=== PATIENT | male | born 1960 | race Caucasian/White ===

== ENCOUNTER 2016-04-03 06:57 | Emergency (ER) | payer OTHER ==
[~2016-04-03] VITALS: Ht 175.3 cm; Wt 63.6 kg
[~2016-04-03 06:57] MED LIST: FLUO20TA28 PO; NPR500T PO; PENI500T PO
[2016-04-03 07:11] VITALS: BP 124/83; PULSE 66; RESP 12; O2SAT 98
--- NOTE | 2016-04-03 07:28 | ED.REPORT ---
HPI-Extremity Problem Upper Date of Service Apr 03, 2016 ED Provider: Luly Gamez MD Pt is a 55 y/o healthy male presenting to the ED c/o left shoulder pain secondary to ground level fall 2 days ago where he hit the rail of his porch. His pain is greatly exacerbated by range of motion. He denies numbness or weakness of the left arm. He denies any other site of injury, LOC. Nursing Notes Stated Complaint: LEFT SHOULDER PAIN/INJURY Chief Complaint: Extremity Trauma Nursing Notes Reviewed: Yes Allergies: Coded Allergies: No Known Allergies (Verified Allergy, Unknown, 07/18/14) Scheduled Fluoxetine (Fluoxetine) 20 Mg Tablet 40 MG PO DAILY Penicillin V Potassium (Penicillin V Potassium) 500 Mg Tablet 500 MG PO QID Scheduled PRN Naproxen (Naproxen) 500 Mg Tab 500 MG PO BID PRN PRN For Pain General Time Seen by MD: 07:27 Chief Complaint Shoulder injury left Hx Obtained From: Patient Arrived By: Walk-in Onset Occurred: 2 days ago Symptom Duration: Since onset Caused by: Fall on ground Location: : Shoulder left Quality: Painful Severity: Current: Moderate Severity: Maximum: Moderate Exacerbated by: Range of motion Relieved by: Rest Recent Healthcare: Recent doctor visit, Recent testing Past Medical History Past Medical History Depression History of lichen planus Past Surgical History Foot surgery due to nail through foot Bladder mesh Smoking History Current Every Day Smoker Social History Alcohol Use: "Social" Drug Use: THC Other Social History: Ambulatory Status Independent Review of Systems Constitutional: Denies: Chills, Fever Musculoskeletal: Reports: Extremity pain (l shoulder) Neurologic: Denies: Numbness, Weakness Complete sys rev & neg: except as marked. Physical Exam Initial Vital Signs Vital Signs (First) Date Time Temp Pulse Resp B/P Pulse Ox O2 Delivery O2 Flow Rate FiO2 04/03/16 07:11 36.2 66 12 124/83 98 Room Air Initial VS: Reviewed Head / Eyes: Atraumatic, Normocephalic, PERRL ENT: Mucous membranes moist, Conjunctiva normal, No scleral icterus Neck: Supple, Full range of motion Respiratory: No respiratory distress Cardiovascular: Intact distal pulses Abdomen / GI: Soft, No distention Lower Extremities: Vascular intact, Neuro intact Skin: Warm, Dry, No cyanosis Neurologic: Alert, Oriented, Nonfocal Psychiatric: Mood/affect normal, Behavior normal, Normal thought content Upper Extremity / MS: No erythema, No deformity, Neurologic intact, Vascular intact Left shoulder: AC joint moderately tender Clavicle non-tender Interpretation & Diagnostics X-Ray Interpretation Xray Interpretation: IMPRESSION: No trauma found. Dictated by: Jason Muro M.D. on 04/03/2016 at 8:45 Approved by: Jason Muro M.D. on 04/03/2016 at 8:45 Study Performed: Bilateral AC joint 2 view X-Ray Ordered: Shoulder left Interpretation / Wet Read by: Interpret - Radiologist Re-Eval/Medical Decision Re-Evaluation/Progress : Time of Eval: 09:01 Re-Evaluation/Progress Note: Pt rechecked. Informed pt of plan for treatment. Pt understands and agrees with plan for treatment. F/U and RTER warnings given. All questions addressed. Counseled Regarding: Diagnosis, Need for follow-up, When/why to return to ED Discharge & Departure Impression: Primary Impression: Fall Encounter type: initial encounter Qualified Code: W19.XXXA - Unspecified fall, initial encounter Additional Impression: Acute shoulder pain Laterality: left Qualified Code: M25.512 - Pain in left shoulder Ruled Out: AC separation, Fracture Disposition: Home Discharge Condition All VS Reviewed: Yes Condition: Stable Patient Instructions: Contusion (ED) Additional Instructions: There was no sign of fracture or AC separation on your shoulder x-ray today. Take Ibuprofen every 6 hours as needed for pain. Return to the emergency department for severe pain, if you develop numbness/ tingling or weakness of the left arm, or for any other concerning signs or symptoms. Follow up with your primary doctor next week. Referrals: Arthur Boo MD (PCP) Nick Attestation Portions of this note were transcribed by Laurent Langley. I, Dr. Gamez personally performed the history, physical exam and medical decision-making; I reviewed and confirmed the accuracy of the information in the transcribed note. Signed by Nick Morin, 04/03/16 0808 copies to: Arthur Boo MD, Shawna L MD Apr 03, 2016 07:28 LAURENT LANGLEY Apr 03, 2016 07:38
--- NOTE | 2016-04-03 08:47 | DRSVH ---
PROCEDURE: X-RAY BILATERAL ACROMIOCLAVICULAR JOINTS ([id number]) INDICATIONS: fall TECHNIQUE: 2 views each of both acromioclavicular joints were acquired. COMPARISON: None. FINDINGS: Bones: No fractures or dislocations. Weightbearing views demonstrate normal acromioclavicular joint alignment as well. No suspicious bony lesions. Superior ribs appear normal. Soft tissues: No suspicious soft tissue calcifications. IMPRESSION: No trauma found. Dictated by: Jason Muro M.D. on 04/03/2016 at 8:45 Approved by: Jason Muro M.D. on 04/03/2016 at 8:45
== END 2016-04-03 09:19 | disposition home or self-care (01) ==
LOC: SED 06:57
DX: M25.512 Pain in left shoulder (principal); W18.39XA Other fall on same level, initial encounter; Y93.89 Activity, other specified; Y92.019 Unspecified place in single-family (private) house as the place of occurrence of the external cause; Y99.8 Other external cause status; F17.200 Nicotine dependence, unspecified, uncomplicated

== ENCOUNTER 2016-11-26 10:44 | Emergency (ER) | payer OTHER ==
[~2016-11-26] VITALS: Ht 175.3 cm; Wt 58.2 kg
--- NOTE | 2016-11-26 10:52 | ED.REPORT ---
HPI-General Illness Date of Service Nov 26, 2016 ED Provider: Robin Blackburn MD The pt is a 55 year old male presenting to the ED using crutches complaining of right ankle pain after slipping on the steps last night and falling to the ground. The patient reports difficulty walking secondary to pain. His pain is throbbing, 8/10 severity, and worse with ROM. The patient denies hitting his head when he fell. He also denies back pain, neck pain, skin rash, headache, dizziness, LOC, numbness or tingling, shortness of breath, chest pain, chills, bleeding, itching, sore throat, or any other symptoms. He requested a work note for today and tomorrow. Patient has not used ice or taken any medications. Nursing Notes Stated Complaint: RT ANKLE PAIN Chief Complaint: Right ankle pain Nursing Notes Reviewed: Yes Allergies: Coded Allergies: No Known Allergies (Verified Allergy, Unknown, 07/18/14) Scheduled Fluoxetine (Fluoxetine) 20 Mg Tablet 40 MG PO DAILY Penicillin V Potassium (Penicillin V Potassium) 500 Mg Tablet 500 MG PO QID Scheduled PRN Naproxen (Naproxen) 500 Mg Tab 500 MG PO BID PRN PRN For Pain General Time Seen by MD: 10:52 Chief Complaint Other (R ankle pain) Hx Obtained From: Patient Arrived By: Walk-in Sudden in Onset?: Yes Onset Occurred: Yesterday Symptom Duration: Since onset Caused by: Fall on ground, Slipped Context: Occurred at: Home injury Location: : Ankle right Quality: Throbbing Severity: Current: Pain level 8 out of 10 Severity: Maximum: Pain level 8 out of 10 Pertinent Negative: Pt denies other symptoms Exacerbated by: Moving affected area Recent Healthcare: Recent doctor visit Past Medical History Past Medical History Depression History of lichen planus Chronic back pain Reports: Depression Past Surgical History Foot surgery due to nail through foot Bladder mesh Smoking History Current Every Day Smoker Social History Alcohol Use: "Social" Drug Use: THC Other Social History: Ambulatory Status Crutches Review of Systems Full Review of Systems Constitutional: Denies: Chills Ears / Nose / Throat: Denies: Sore throat Respiratory: Denies: Shortness of breath Cardiovascular: Denies: Chest pain GI: Denies: Vomiting Musculoskeletal: Reports: Joint pain (R ankle ), Denies: Back pain, Neck pain Hematologic: Denies Bleeding Skin: Denies Rash Allergy / Immune: Denies: Itching Neurologic: Denies: Change LOC, Dizziness, Headache, Numbness (or tingling ) Complete sys rev & neg: except as marked. Physical Exam Nursing note and vitals reviewed. Constitutional: Well-developed, well-nourished. Not diaphoretic. Head: Normocephalic and atraumatic. Mouth/Throat: Oropharynx is clear and moist. No oropharyngeal exudate. Eyes: EOM are normal. Pupils are equal, round, and reactive to light. Neck: Supple, no tracheal deviation. Cardiovascular: Normal rate, regular rhythm. Equal and intact distal pulses throughout. Pulmonary/Chest: Effort normal and breath sounds normal. No respiratory distress. Abdominal: Soft. No distension. There is no tenderness, rebound, or guarding. Bowel sounds present. Musculoskeletal: Range of motion grossly intact, moving all extremities. No edema. No proximal fibular tenderness. No proximal 1st or 2nd metatarsal tenderness. No fifth metatarsal tenderness to palpation. Mild tenderness slightly distal to the lateral malleolus without ecchymosis. Mild swelling present. Neurological: AOx3. Grossly nonfocal exam. Strength and sensation intact and equal to bilateral upper and lower extremities. Skin: Warm and dry. Lichen planus to bilateral lower extremities Psychiatric: Appropriate mood and affect. Behavior appears normal. Vital Signs Vital Signs Date Time Temp Pulse Resp B/P Pulse Ox O2 Delivery O2 Flow Rate FiO2 11/26/16 14:18 57 14 160/70 97 Room Air 11/26/16 10:53 37.0 77 18 150/81 98 Room Air Initial VS: Reviewed Interpretation & Diagnostics X-Ray Interpretation Xray Interpretation: IMPRESSION: Negative for fracture Dictated by: Noe Modi M.D. on 11/26/2016 at 11:32 Approved by: Noe Modi M.D. on 11/26/2016 at 11:34 X-Ray Ordered: Ankle right Interpretation / Wet Read by: Interpret - Radiologist Xray Interpretation: IMPRESSION: Small effusion, negative for fracture Dictated by: Noe Modi M.D. on 11/26/2016 at 11:31 Approved by: Noe Modi M.D. 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 X-ray negative for acute fracture. He did not hit his head or sustain any other injuries. No loss of consciousness, no neck pain, no headache, no vision changes. Clear mechanical etiology. No proximal first and second metatarsal tenderness that would suggest Lisfranc injury. No fifth metatarsal tenderness. Neurovascularly intact. Suspect ankle sprain versus strain. Patient given Toradol IM here in the ED. Plan discharge home with an ankle stirrup splint, careful return precautions, and PCP follow-up. Patient agreeable to the plan as stated, no further questions. Time of Eval: 14:15 Re-Evaluation/Progress Note: Discussed plan for discharge. Patient understands and agrees with plan. All questions addressed at this time. Counseled Regarding: Diagnosis, Lab results, Need for follow-up, When/why to return to ED Discharge & Departure Primary Impression: Ankle sprain Encounter type: initial encounter Involved ligament of ankle: unspecified ligament Laterality: right Qualified Code: S93.401A - Sprain of unspecified ligament of right ankle, initial encounter Disposition: Home Discharge Condition All VS Reviewed: Yes Condition: Stable Patient Instructions: Ankle Sprain (ED) Additional Instructions: Thank you for coming to the emergency department. Your x-rays and examination are reassuring. We did not find a fracture at this time. Use Iburpofen (600mg every 6 hours, as needed), ice, elevation, and rest. Use the air cast provided for additional support. Bear weight as tolerated, using your crutches as needed. Follow up with your primary doctor tomorrow for re-evaluation. Return to the emergency department for numbess, weakness, tingling, or any other new or concerning symptoms to you. Referrals: Arthur Boo MD (PCP) Scribe Attestation Portions of this note were transcribed by Razia Jurado. I, Dr. Blackburn personally performed the history, physical exam and medical decision-making; I reviewed and confirmed the accuracy of the information in the transcribed note. Signed by: Nick Guerra, 11/26/16 copies to: Arthur Boo MD, William B MD Nov 26, 2016 10:52 RAZIA JURADO Nov 26, 2016 11:47 Nov 26, 2016 12:38
[2016-11-26 10:53] VITALS: BP 150/81; PULSE 77; RESP 18; O2SAT 98
--- NOTE | 2016-11-26 11:34 | DRSVH ---
PROCEDURE: X-RAY RIGHT KNEE, THREE VIEWS ([id number]) INDICATIONS: ankle pain s/p fall TECHNIQUE: 3 views of the knee were acquired. COMPARISON: None. FINDINGS: Bones: No fractures or dislocations. No suspicious bony lesions. Soft tissues: Small joint effusion. No suspicious soft tissue calcifications. IMPRESSION: Small effusion, negative for fracture Dictated by: Noe Modi M.D. on 11/26/2016 at 11:31 Approved by: Noe Modi M.D. on 11/26/2016 at 11:32
--- NOTE | 2016-11-26 11:36 | DRSVH ---
PROCEDURE: X-RAY RIGHT ANKLE, MINIMUM THREE VIEWS ([id number]) INDICATIONS: ankle pain s/p fall TECHNIQUE: 3 views of the ankle were acquired. COMPARISON: None. FINDINGS: Bones: No fractures or dislocations. Ankle mortise is normally aligned. No suspicious bony lesions . Soft tissues: No tibiotalar joint effusion. Achilles tendon appears normal. IMPRESSION: Negative for fracture Dictated by: Noe Modi M.D. on 11/26/2016 at 11:32 Approved by: Noe Modi M.D. on 11/26/2016 at 11:34
[2016-11-26] MEDS ORDERED: Ketorolac 15 mg/mL Inj IM ONE (13:55)
[2016-11-26 14:18] VITALS: BP 160/70; PULSE 57; RESP 14; O2SAT 97
== END 2016-11-26 14:19 | disposition home or self-care (01) ==
LOC: SED 10:44
DX: S93.491A Sprain of other ligament of right ankle, initial encounter (principal); W01.0XXA Fall on same level from slipping, tripping and stumbling without subsequent striking against object, initial encounter; Y93.89 Activity, other specified; Y92.009 Unspecified place in unspecified non-institutional (private) residence as the place of occurrence of the external cause; Y99.8 Other external cause status; R26.2 Difficulty in walking, not elsewhere classified; F32.9 Major depressive disorder, single episode, unspecified; F17.200 Nicotine dependence, unspecified, uncomplicated; Z98.890 Other specified postprocedural states
CPT/HCPCS: 29515; 73562; 73610; 96372; 99284; J1885